=== PATIENT | female | born 1980 | race Caucasian/White ===

== ENCOUNTER 2017-01-01 13:26 | Emergency (ER) | payer SELFPAY | END 2017-01-01 13:36 | disposition left against medical advice (07) | LOC: FER 13:26 | DX: Z04.1 Encounter for examination and observation following transport accident (principal); Z53.8 Procedure and treatment not carried out for other reasons ==

== ENCOUNTER 2017-01-01 18:16 | Emergency (ER) | payer SELFPAY | END 2017-01-01 22:01 | disposition home or self-care (01) | LOC: FER 18:16 | DX: S16.1XXA Strain of muscle, fascia and tendon at neck level, initial encounter (principal); S29.012A Strain of muscle and tendon of back wall of thorax, initial encounter; S30.0XXA Contusion of lower back and pelvis, initial encounter; I10 Essential (primary) hypertension; F39 Unspecified mood [affective] disorder; V49.40XA Driver injured in collision with unspecified motor vehicles in traffic accident, initial encounter; Y92.410 Unspecified street and highway as the place of occurrence of the external cause | CPT/HCPCS: 72040; 72072; 72220; 99284 ==

== ENCOUNTER 2017-03-05 20:47 | Emergency (ER) | payer SELFPAY | END 2017-03-06 00:25 | disposition home or self-care (01) | LOC: FER 20:47 | DX: Z76.0 Encounter for issue of repeat prescription (principal); G40.909 Epilepsy, unspecified, not intractable, without status epilepticus; F39 Unspecified mood [affective] disorder; F17.210 Nicotine dependence, cigarettes, uncomplicated; Z88.0 Allergy status to penicillin; Z79.899 Other long term (current) drug therapy | CPT/HCPCS: 99281 ==

== ENCOUNTER 2021-03-18 01:18 | Emergency (ER) | payer OTHER ==
[~2021-03-18 01:18] MED LIST: IRON325 M1 PO; KEFLEX250 MG PO; NAPROXEN500 MG PO; NEURONTIN300 MG PO; NORCO 5-325 TA1 EACH PO; OMEPRAZOLE40 MG PO; PERCOCET 5-3251 EACH PO; PRILOSEC20 MG PO; ZOFRAN4 MG PO
[2021-03-18] MEDS ORDERED: CLEOCIN HCL300 MG PO (01:51)
[2021-03-18] MEDS ORDERED: BACTROBAN NASAL1 GM TOP (01:51)
== END 2021-03-18 02:02 | disposition home or self-care (01) ==
LOC: FER 01:18
DX: T14.8XXA Other injury of unspecified body region, initial encounter (principal); L03.90 Cellulitis, unspecified; F17.210 Nicotine dependence, cigarettes, uncomplicated; Z88.0 Allergy status to penicillin; W57.XXXA Bitten or stung by nonvenomous insect and other nonvenomous arthropods, initial encounter
CPT/HCPCS: 99281

== ENCOUNTER 2021-07-29 15:18 | Emergency (ER) | payer OTHER ==
[~2021-07-29] VITALS: Ht 154.9 cm; Wt 68.0 kg
[~2021-07-29 15:18] MED LIST changes: +BACTROBAN NASAL1 GM TOP; +CLEOCIN HCL300 MG PO
== END 2021-07-29 16:55 | disposition left against medical advice (07) ==
LOC: FER 15:18
DX: R05.9 Cough, unspecified (principal); R06.02 Shortness of breath; R21 Rash and other nonspecific skin eruption; Z53.8 Procedure and treatment not carried out for other reasons
CPT/HCPCS: 99281

== ENCOUNTER 2021-08-03 19:19 | Emergency (ER) | payer OTHER ==
[2021-08-03 20:23] LABS: BASOPHIL 0.6 % (0-2); BILIRUBIN NEGATIVE (NEGATIVE); BLOOD 1+ Ery/uL (NEGATIVE); CLARITY CLEAR (CLEAR); COLOR YELLOW (YELLOW); EOSINOPHIL 1.3 % (0-5); GLUCOSE (U) NORMAL (NORMAL); HCT 36.8 % (37.0-47.0); HGB 11.6 g/dl (12.5-16.0); LEUKOCYTES NEGATIVE Leu/uL (NEGATIVE); LYMPHOCYTE 17.7 % (15-48); MCH 25.4 pg (25.0-31.0); MCHC 31.5 g/dL (32.0-36.0); MCV 80.5 fL (78.0-100.0); MONOCYTE 7.6 % (0-12); MPV 9.8 fL (6.0-9.5); NITRITE NEGATIVE (NEGATIVE); NRBC 0; PLT 488 K/uL (150-400); PROTEIN NEGATIVE (NEGATIVE); RBC 4.57 M/uL (4.20-5.40); RDW 18.4 % (11.5-14.0); SPECIFIC GRAVITY <=1.005 (1.001-1.030); UROBILINOGEN 0.2 mg/dL (0.2-1.0); WBC 11.4 K/uL (4.0-10.5); pH 5.5 (5.0-9.0)
[2021-08-03 20:30] LABS: BACTERIA TRACE; URINARY WBC RARE
[2021-08-03 20:43] LABS: BUN/CREAT RATIO (CALC) 13.2 RATIO; CREATININE 0.68 mg/dL (0.51-0.95); POTASSIUM 3.7 mmol/L (3.5-5.1)
[2021-08-04] MEDS ORDERED: ZOFRAN4 M1 PO (02:31)
== END 2021-08-04 02:55 | disposition home or self-care (01) ==
LOC: FER 19:19
PROVIDERS: Emergency Medicine; Nurse Practitioner Family
DX: O00.90 Unspecified ectopic pregnancy without intrauterine pregnancy (principal); Z88.0 Allergy status to penicillin; Z88.2 Allergy status to sulfonamides
CPT/HCPCS: 36415; 76830; 80048; 81001; 84702; 85025; 86850; 86900; 86901; 96372; J1170; J2405

== ENCOUNTER 2021-08-08 14:56 | Inpatient (IN) | payer OTHER ==
[~2021-08-08] VITALS: Ht 162.6 cm; Wt 68.0 kg
[~2021-08-08 14:56] MED LIST changes: +ZOFRAN4 M1 PO
[2021-08-08 16:20] LABS: BASOPHIL 0.6 % (0-2); EOSINOPHIL 2.8 % (0-5); HCT 32.9 % (37.0-47.0); HGB 10.4 g/dl (12.5-16.0); LYMPHOCYTE 35.1 % (15-48); MCH 25.6 pg (25.0-31.0); MCHC 31.6 g/dL (32.0-36.0); MONOCYTE 9.2 % (0-12); MPV 9.6 fL (6.0-9.5); NEUTROPHIL 51.7 % (41-80); NRBC 0; PLT 367 K/uL (150-400); RBC 4.06 M/uL (4.20-5.40); WBC 6.3 K/uL (4.0-10.5)
[2021-08-08 16:35] LABS: BUN/CREAT RATIO (CALC) 15.6 RATIO; CREATININE 0.64 mg/dL (0.51-0.95); POTASSIUM 3.9 mmol/L (3.5-5.1)
[2021-08-09 01:51] LABS: HCT 32.6 % (37.0-47.0); HGB 10.2 g/dl (12.5-16.0); MCH 25.9 pg (25.0-31.0); MCHC 31.3 g/dL (32.0-36.0); MCV 82.7 fL (78.0-100.0); MPV 9.8 fL (6.0-9.5); RBC 3.94 M/uL (4.20-5.40); RDW 19.4 % (11.5-14.0)
[2021-08-09 01:52] LABS: WBC 16.4 K/uL (4.0-10.5)
[2021-08-09] MEDS ORDERED: KETOROLAC TROME10 MG PO (12:17)
[2021-08-09] MEDS ORDERED: MIRALAX17 GM PO (12:17)
[2021-08-09] MEDS ORDERED: SENOKOT8.6 MG PO (12:17)
[2021-08-09] MEDS ORDERED: ZOFRAN4 M1 PO (12:17)
[2021-08-09] MEDS ORDERED: ATARAX25 MG PO (12:23)
== END 2021-08-09 14:50 | disposition home or self-care (01) | DRG 819 ==
LOC: FER 14:56 → FICU 08-09 00:31
PROVIDERS: Emergency Medicine; ADMIT Specialist
PROC: 10T24ZZ Resection of Products of Conception, Ectopic, Percutaneous Endoscopic Approach (ICD-10-PCS; principal; 2021-08-08)
PROC: 0UT64ZZ Resection of Left Fallopian Tube, Percutaneous Endoscopic Approach (ICD-10-PCS; 2021-08-08)
PROC: 0DNU4ZZ Release Omentum, Percutaneous Endoscopic Approach (ICD-10-PCS; 2021-08-08)
DX: O00.102 Left tubal pregnancy without intrauterine pregnancy (principal); F41.0 Panic disorder [episodic paroxysmal anxiety]; Z20.822 Contact with and (suspected) exposure to COVID-19; R06.03 Acute respiratory distress; K21.9 Gastro-esophageal reflux disease without esophagitis; E66.9 Obesity, unspecified; Z88.0 Allergy status to penicillin; Z90.49 Acquired absence of other specified parts of digestive tract; Z87.891 Personal history of nicotine dependence; Z88.2 Allergy status to sulfonamides
CPT/HCPCS: 36415; 36600; 71045; 76817; 80048; 82803; 84702; 85025; 86850; 86900; 86901; 94002; J1100; J1885; J2250; J2405; J2704; J2710; J3010; J7120; U0002

== ENCOUNTER 2021-12-11 09:46 | Emergency (ER) | payer OTHER ==
[~2021-12-11 09:46] MED LIST changes: +ATARAX25 MG PO; +KETOROLAC TROME10 MG PO; +MIRALAX17 GM PO; +SENOKOT8.6 MG PO
[2021-12-11 10:22] LABS: BASOPHIL 2.5 % (0-2); EOSINOPHIL 15.2 % (0-5); HCT 40.8 % (37.0-47.0); HGB 12.1 g/dl (12.5-16.0); LYMPHOCYTE 32.8 % (15-48); MCH 24.4 pg (25.0-31.0); MCHC 29.7 g/dL (32.0-36.0); MCV 82.3 fL (78.0-100.0); MPV 9.9 fL (6.0-9.5); NEUTROPHIL 41.4 % (41-80); NRBC 0; PLT 281 K/uL (150-400); RBC 4.96 M/uL (4.20-5.40); RDW 19.7 % (11.5-14.0); WBC 4.7 K/uL (4.0-10.5)
== END 2021-12-11 10:43 | disposition home or self-care (01) ==
LOC: FER 09:46
PROVIDERS: Emergency Medicine
DX: L85.3 Xerosis cutis (principal); R05.9 Cough, unspecified; Z88.0 Allergy status to penicillin; Z87.891 Personal history of nicotine dependence
CPT/HCPCS: 36415; 71046; 85025